=== PATIENT | male | born 1940 | race Caucasian/White ===

== ENCOUNTER 2020-10-14 12:42 | Emergency (ER) | payer OTHER, MEDICARE ==
[~2020-10-14] VITALS: Ht 193 cm; Wt 97.5 kg
[2020-10-14] MEDS ORDERED: MELO7.5 PO (13:54)
== END 2020-10-14 14:03 | disposition home or self-care (01) ==
LOC: ER 12:42
DX: M16.4 Bilateral post-traumatic osteoarthritis of hip (principal); I48.91 Unspecified atrial fibrillation; V89.2XXA Person injured in unspecified motor-vehicle accident, traffic, initial encounter; Y92.410 Unspecified street and highway as the place of occurrence of the external cause
CPT/HCPCS: 73522; 99283-25

== ENCOUNTER 2021-04-11 15:28 | Emergency (ER) | payer OTHER, MEDICARE ==
[~2021-04-11] VITALS: Ht 193 cm; Wt 101.6 kg
[~2021-04-11 15:28] MED LIST: MELO7.5 PO
== END 2021-04-11 19:18 | disposition home or self-care (01) ==
LOC: ER 15:28
DX: R09.89 Other specified symptoms and signs involving the circulatory and respiratory systems (principal); I48.91 Unspecified atrial fibrillation
CPT/HCPCS: 31575; 70360; 99284-25; J2001

== ENCOUNTER 2021-05-06 21:57 | Emergency (ER) | payer OTHER, MEDICARE ==
[~2021-05-06] VITALS: Ht 193 cm; Wt 102.1 kg
== END 2021-05-06 22:55 | disposition home or self-care (01) ==
LOC: ER 21:57
DX: K21.9 Gastro-esophageal reflux disease without esophagitis (principal); I48.91 Unspecified atrial fibrillation
CPT/HCPCS: 99283; A9270

== ENCOUNTER 2023-03-30 02:35 | Emergency (ER) | payer OTHER ==
[~2023-03-30] VITALS: Ht 193 cm; Wt 99.8 kg
[2023-03-30 02:53] LABS: BASOPHILS ABSOLUTE AUTO 0.04 K/mm3 (0.00-0.23); BASOPHILS PERCENT AUTO 0 % (0-2); EOSINOPHILS ABSOLUTE AUTO 0.38 K/mm3 (0.00-0.68); EOSINOPHILS PERCENT AUTO 4 % (0-6); Hemoglobin 13.6 g/dL (13.5-17.5); IMMATURE GRAN ABSOLUTE AUTO 0.04 K/mm3 (0.00-0.10); IMMATURE GRAN PERCENT AUTO 0 % (0-1); LYMPHOCYTES ABSOLUTE AUTO 1.62 K/mm3 (0.84-5.20); LYMPHOCYTES PERCENT AUTO 16 % (21-46); MONOCYTES ABSOLUTE AUTO 0.73 K/mm3 (0.16-1.47); MONOCYTES PERCENT AUTO 7 % (4-13); Mean Corpuscular HGB 31.2 pg (26.0-34.0); Mean Corpuscular HGB Conc 33.2 g/dL (31.5-36.5); Mean Corpuscular Volume 94 fL (80-100); NEUTROPHILS ABSOLUTE AUTO 7.53 K/mm3 (1.96-9.15); NEUTROPHILS PERCENT AUTO 73 % (41-73); Platelet Count 157 K/mm3 (150-400); RDW Coefficient Variation 13.2 % (11.7-14.2); RDW Standard Deviation 45.8 fL (35.1-46.3); Red Blood Cell Count 4.36 M/mm3 (4.30-5.90); White Blood Cell Count 10.34 K/mm3 (4.00-11.30)
[2023-03-30 03:11] LABS: Albumin, Blood 3.3 g/dL (3.4-5.0); Albumin/Globulin Ratio 0.9 (0.8-1.8); Bilirubin, Total 1.1 mg/dL (0.1-1.0); Bun/Creatinine Ratio 11.7 (12.0-20.0); Calcium, Blood 8.7 mg/dL (8.5-10.1); Creatinine, Blood 2.31 mg/dL (0.60-1.20); Globulin, Blood 3.5 g/dL (2.2-4.0); Potassium, Blood 4.1 mmol/L (3.5-5.5); Total Protein, Blood 6.8 g/dL (6.4-8.2)
[2023-03-30 04:03] LABS: Source, Urine Clean Catch
[2023-03-30 04:12] LABS: Bilirubin, Urine Neg (Neg); Blood, Urine 2+ (Neg); Glucose Qualitative, Urine Neg (Neg); Ketones, Urine Neg (Neg); Leukocyte Esterase, Urine Neg (Neg); Nitrite, Urine Neg (Neg); Protein, Urine 1+ (Neg); Specific Gravity, Urine 1.015 (1.003-1.022); Urobilinogen, Urine 2+ (Normal)
[2023-03-30 04:30] LABS: Appearance, Urine Clear (Clear); Bacteria Not Seen /hpf; Color, Urine Yellow (P-Yellow); Squamous Epithelial Cells Rare /hpf (Few); White Blood Cells, Urine Not Seen /hpf (0-5)
[2023-03-30 04:37] VITALS: BP 110/67
== END 2023-03-30 05:09 | disposition home or self-care (01) ==
LOC: ER 02:35
PROVIDERS: Emergency Medicine
DX: R10.30 Lower abdominal pain, unspecified (principal); R11.0 Nausea; R68.83 Chills (without fever); R09.82 Postnasal drip
CPT/HCPCS: 51798; 74018; 80053; 81001; 85025

== ENCOUNTER 2023-03-31 20:19 | Inpatient (IN) | payer OTHER ==
[~2023-03-31] VITALS: Ht 193 cm; Wt 99.6 kg
[2023-03-31 20:59] LABS: BASOPHILS ABSOLUTE AUTO 0.05 K/mm3 (0.00-0.23); BASOPHILS PERCENT AUTO 0 % (0-2); EOSINOPHILS ABSOLUTE AUTO 0.51 K/mm3 (0.00-0.68); EOSINOPHILS PERCENT AUTO 4 % (0-6); Hematocrit 39.9 % (37.0-53.0); Hemoglobin 13.7 g/dL (13.5-17.5); IMMATURE GRAN ABSOLUTE AUTO 0.05 K/mm3 (0.00-0.10); IMMATURE GRAN PERCENT AUTO 0 % (0-1); LYMPHOCYTES ABSOLUTE AUTO 1.13 K/mm3 (0.84-5.20); LYMPHOCYTES PERCENT AUTO 8 % (21-46); MONOCYTES PERCENT AUTO 11 % (4-13); Mean Corpuscular HGB 31.2 pg (26.0-34.0); Mean Corpuscular HGB Conc 34.3 g/dL (31.5-36.5); Mean Corpuscular Volume 91 fL (80-100); Mean Platelet Volume 10.3 fL (9.1-12.4); NEUTROPHILS ABSOLUTE AUTO 10.25 K/mm3 (1.96-9.15); NEUTROPHILS PERCENT AUTO 77 % (41-73); NRBC ABSOLUTE 0.02 K/mm3 (0.00-0.02); NRBC Auto 0.1 /100 WBC (0.0-0.2); Platelet Count 166 K/mm3 (150-400); RDW Coefficient Variation 13.6 % (11.7-14.2); RDW Standard Deviation 45.3 fL (35.1-46.3); Red Blood Cell Count 4.39 M/mm3 (4.30-5.90); White Blood Cell Count 13.39 K/mm3 (4.00-11.30)
[2023-03-31 21:18] LABS: Albumin, Blood 3.4 g/dL (3.4-5.0); Bilirubin, Total 4.3 mg/dL (0.1-1.0); Bun/Creatinine Ratio 13.5 (12.0-20.0); Calcium, Blood 8.4 mg/dL (8.5-10.1); Creatinine, Blood 2.6 mg/dL (0.60-1.20); Globulin, Blood 3.5 g/dL (2.2-4.0); Potassium, Blood 4.2 mmol/L (3.5-5.5); Total Protein, Blood 6.9 g/dL (6.4-8.2)
[2023-04-01 02:35] LABS: Source, Urine Clean Catch
[2023-04-01 02:38] LABS: Appearance, Urine Clear (Clear); Blood, Urine 2+ (Neg); Color, Urine Amber (P-Yellow); Glucose Qualitative, Urine Neg (Neg); Ketones, Urine Neg (Neg); Leukocyte Esterase, Urine Neg (Neg); Nitrite, Urine Neg (Neg); Protein, Urine 2+ (Neg); Specific Gravity, Urine 1.015 (1.003-1.022); Urobilinogen, Urine 2+ (Normal)
[2023-04-01 02:46] LABS: Bilirubin, Urine 1+ (Neg)
[2023-04-01 02:49] LABS: Bacteria Rare /hpf; Hyaline Casts 0-2 /lpf (0-2); Red Blood Cells, Urine 0-2 /hpf (0-2); Squamous Epithelial Cells Rare /hpf (Few); White Blood Cells, Urine 0-2 /hpf (0-5)
[2023-04-01 07:18] LABS: Hematocrit 41.9 % (37.0-53.0); Hemoglobin 14.1 g/dL (13.5-17.5); Mean Corpuscular HGB 30.9 pg (26.0-34.0); Mean Corpuscular HGB Conc 33.7 g/dL (31.5-36.5); Mean Corpuscular Volume 92 fL (80-100); Mean Platelet Volume 10.2 fL (9.1-12.4); Platelet Count 159 K/mm3 (150-400); RDW Coefficient Variation 13.6 % (11.7-14.2); Red Blood Cell Count 4.57 M/mm3 (4.30-5.90); White Blood Cell Count 14.08 K/mm3 (4.00-11.30)
[2023-04-01 07:45] LABS: Albumin, Blood 3.1 g/dL (3.4-5.0); Albumin/Globulin Ratio 0.9 (0.8-1.8); Bilirubin, Direct 2.6 mg/dL (0.0-0.3); Bilirubin, Total 3.6 mg/dL (0.1-1.0); Bun/Creatinine Ratio 12.4 (12.0-20.0); Calcium, Blood 8.6 mg/dL (8.5-10.1); Creatinine, Blood 2.42 mg/dL (0.60-1.20); Globulin, Blood 3.6 g/dL (2.2-4.0); Potassium, Blood 4.3 mmol/L (3.5-5.5); Total Protein, Blood 6.7 g/dL (6.4-8.2)
[2023-04-01] MEDS ORDERED: TAMSULOSIN HCL0.4 M1 PO (10:52)
[2023-04-01] MEDS ORDERED: FUROSEMIDE20 MG PO (10:52)
[2023-04-01] MEDS ORDERED: LORA10ER PO (10:53)
[2023-04-01] MEDS ORDERED: ATEN25 PO (10:54)
[2023-04-01] MEDS ORDERED: OMEP20ER PO (10:54)
[2023-04-01] MEDS ORDERED: POTA10T PO (10:55)
[2023-04-01] MEDS ORDERED: LOSARTAN POTASS25 MG PO (10:55)
[2023-04-01] MEDS ORDERED: SODIUM CHLORIDE (10:56)
[2023-04-01] MEDS ORDERED: ELIQUIS2.5 MG PO (11:22)
[2023-04-01 12:27] VITALS: BP 136/70
[2023-04-01 15:51] VITALS: BP 127/78
--- NOTE | 2023-04-01 17:24 | NUR ---
SHIFT SUMMARY PT A&O2-3/CONFUSED, NPO, TELE AFIB @ 90-100, AMB SBA, VOIDING/URINAL, SURGICAL CONSULT CALLED-DR CAMPOS AWARE. WILL REPORT TO NEXT RN.
[2023-04-01 19:18] VITALS: BP 125/67
--- NOTE | 2023-04-01 22:03 | NUR ---
ASSUMED CARE OF PT. PT LAYING ON RIGHT SIDE, APPEARS TO BE SLEEPING, RESP E/U, NO DISTRESS NOTED. BED ALARM ON FOR SAFETY.
[2023-04-02] VITALS (14 sets, daily range): BP systolic 98–142; BP diastolic 54–93
[2023-04-02 04:56] LABS: BASOPHILS ABSOLUTE AUTO 0.03 K/mm3 (0.00-0.23); BASOPHILS PERCENT AUTO 0 % (0-2); EOSINOPHILS ABSOLUTE AUTO 0.01 K/mm3 (0.00-0.68); EOSINOPHILS PERCENT AUTO 0 % (0-6); Hemoglobin 12.4 g/dL (13.5-17.5); IMMATURE GRAN ABSOLUTE AUTO 0.09 K/mm3 (0.00-0.10); IMMATURE GRAN PERCENT AUTO 1 % (0-1); LYMPHOCYTES ABSOLUTE AUTO 1.08 K/mm3 (0.84-5.20); LYMPHOCYTES PERCENT AUTO 7 % (21-46); MONOCYTES ABSOLUTE AUTO 1.79 K/mm3 (0.16-1.47); MONOCYTES PERCENT AUTO 12 % (4-13); Mean Corpuscular HGB 30.6 pg (26.0-34.0); Mean Corpuscular HGB Conc 33.5 g/dL (31.5-36.5); Mean Corpuscular Volume 91 fL (80-100); Mean Platelet Volume 10.8 fL (9.1-12.4); NEUTROPHILS ABSOLUTE AUTO 12.37 K/mm3 (1.96-9.15); NEUTROPHILS PERCENT AUTO 81 % (41-73); Platelet Count 136 K/mm3 (150-400); RDW Coefficient Variation 13.4 % (11.7-14.2); RDW Standard Deviation 45.1 fL (35.1-46.3); Red Blood Cell Count 4.05 M/mm3 (4.30-5.90); White Blood Cell Count 15.37 K/mm3 (4.00-11.30)
[2023-04-02 05:38] LABS: Albumin, Blood 2.5 g/dL (3.4-5.0); Albumin/Globulin Ratio 0.8 (0.8-1.8); Bilirubin, Total 3.4 mg/dL (0.1-1.0); Bun/Creatinine Ratio 12.4 (12.0-20.0); Calcium, Blood 8.1 mg/dL (8.5-10.1); Creatinine, Blood 2.42 mg/dL (0.60-1.20); Globulin, Blood 3.2 g/dL (2.2-4.0); Potassium, Blood 4.5 mmol/L (3.5-5.5); Total Protein, Blood 5.7 g/dL (6.4-8.2)
--- NOTE | 2023-04-02 05:41 | NUR ---
PT APPEARED TO SLEEP FOR MAJORITY OF NIGHT, VSS, HR AFIB 65 PER TELE MONITOR. PT DENIED ABD PAIN/N/V, HAS BEEN NPO POST MIDNIGHT. PT VOIDING DARK PEREZ URINE IN URINAL. IVF AND ABX CONT PER ORDERS. BED ALARM ON FOR SAFETY. PLAN FOR SURGERY TODAY.
--- NOTE | 2023-04-02 10:20 | NUR ---
PATIENT TO DAY SURGERY VIA [facility]
--- NOTE | 2023-04-02 11:09 | NUR ---
THE PATIENT WAS BROUGHT TO DAY SURGERY FOR HIS PROCEDURE.
--- NOTE | 2023-04-02 14:10 | NUR ---
RETURNED FROM PACU PATIENT BACK TO ROOM FROM PACU. VSS ON 4L O2 VIA NC. X4 LAP SITES TO ABDOMEN W/ STERI STRIPS, C/D/I. PATIENT DENIES PAIN. TOLERATIG WATER & JELLO CURRENTLY. DENIES N/V. CALL LIGHT IN REACH.
--- NOTE | 2023-04-02 18:26 | NUR ---
SHIFT SUMMARY POD 0 LAP UMANG. NO ACUTE CHANGES SINCE RETURN TO UNIT. X4 LAP SITES TO ABDOMEN, STERI STRIPS C/D/I. PATIENT TOLERATING REGULAR DIET, DENIES N/V. VOIDING W/O DIFFICULTY. CALL LIGHT IN REACH, WILL REPORT TO ONCOMING RN AT 1900.
[2023-04-03 00:29] VITALS: BP 103/71
--- NOTE | 2023-04-03 04:59 | NUR ---
SHIFT SUMMARY POD1 LAP UMANG, 4 ABD INCISIONS, STERI STRIPS C/D/I. MINESH UMBILICAL BRUISING. A&OX4, CACHIL DEHE. DENIES PAIN T/O SHIFT, N/T, N/V, AND SOB. URINE VERY DARK PEREZ IN COLOR, DENIES PAIN ON URINATION. NEW 20G IV TO L FA, SL. TELE IN PLACE, AFIB @80BPM. PLANS FOR DC TODAY TO HOME. VSS, CALL LIGHT W/IN REACH, WILL REPORT OFF TO DAYSHIFT RN.
[2023-04-03 05:01] VITALS: BP 108/67
[2023-04-03 05:05] LABS: BASOPHILS ABSOLUTE AUTO 0.01 K/mm3 (0.00-0.23); BASOPHILS PERCENT AUTO 0 % (0-2); EOSINOPHILS PERCENT AUTO 0 % (0-6); Hematocrit 36.7 % (37.0-53.0); Hemoglobin 12.3 g/dL (13.5-17.5); IMMATURE GRAN ABSOLUTE AUTO 0.06 K/mm3 (0.00-0.10); IMMATURE GRAN PERCENT AUTO 1 % (0-1); LYMPHOCYTES ABSOLUTE AUTO 0.74 K/mm3 (0.84-5.20); LYMPHOCYTES PERCENT AUTO 6 % (21-46); MONOCYTES ABSOLUTE AUTO 0.85 K/mm3 (0.16-1.47); MONOCYTES PERCENT AUTO 7 % (4-13); Mean Corpuscular HGB 30.7 pg (26.0-34.0); Mean Corpuscular HGB Conc 33.5 g/dL (31.5-36.5); Mean Corpuscular Volume 92 fL (80-100); Mean Platelet Volume 10.6 fL (9.1-12.4); NEUTROPHILS PERCENT AUTO 87 % (41-73); Platelet Count 137 K/mm3 (150-400); RDW Coefficient Variation 13.5 % (11.7-14.2); RDW Standard Deviation 45.6 fL (35.1-46.3); Red Blood Cell Count 4.01 M/mm3 (4.30-5.90); White Blood Cell Count 13.16 K/mm3 (4.00-11.30)
[2023-04-03 05:41] LABS: Albumin, Blood 2.5 g/dL (3.4-5.0); Albumin/Globulin Ratio 0.7 (0.8-1.8); Bilirubin, Total 2.1 mg/dL (0.1-1.0); Bun/Creatinine Ratio 15.3 (12.0-20.0); Calcium, Blood 8.5 mg/dL (8.5-10.1); Creatinine, Blood 2.22 mg/dL (0.60-1.20); Globulin, Blood 3.7 g/dL (2.2-4.0); Potassium, Blood 4.7 mmol/L (3.5-5.5); Total Protein, Blood 6.2 g/dL (6.4-8.2)
[2023-04-03 07:24] VITALS: BP 115/73
--- NOTE | 2023-04-03 09:55 | NUR ---
DISCHARGE PATIENT TOLERATING REGULAR DIET WELL, DENIES N/V. X4 LAP SITES TO ABDOMEN, UMBILICAL INCISION HAS LIGHT SS DRAINAGE, INTACT. PATIENT DENIES ABDOMINAL PAIN. VOIDING W/O DIFFICULTY. AMBULATING 1P ASSIST WITH GB. ATTEMPTED TO DISCUSS DISCHARGE INSTRUCTIONS WITH PATIENT, PATIENT INTERRUPTED THIS RN AND STATED "I CAN READ PAPERS, YOU DONT NEED TO TELL ME ANYTHING". THIS RN VERIFIED BY ASKING "YOU DONT WANT ME TO GO OVER ANY OF THE DISCHARGE PACKET WITH YOU?", PATIENT STATED "NO, JUST GIVE IT TO ME". DISCHARGE PACKET GIVEN TO PATIENT & ESCORTED OUT TO PATIENTS RIDE VIA W/C.
== END 2023-04-03 09:57 | disposition home or self-care (01) | DRG 418 ==
LOC: ER 20:19 → SURS 04-01 10:56
PROVIDERS: Student in an Organized Health Care Education/Training Program; Surgery; ADMIT Internal Medicine
PROC: 0FT44ZZ Resection of Gallbladder, Percutaneous Endoscopic Approach (ICD-10-PCS; principal; 2023-04-02 11:30)
DX: K80.00 Calculus of gallbladder with acute cholecystitis without obstruction (principal); I48.20 Chronic atrial fibrillation, unspecified; N18.4 Chronic kidney disease, stage 4 (severe); N17.9 Acute kidney failure, unspecified; K82.1 Hydrops of gallbladder; K82.A1 Gangrene of gallbladder in cholecystitis; R74.01 Elevation of levels of liver transaminase levels; E80.6 Other disorders of bilirubin metabolism; K21.9 Gastro-esophageal reflux disease without esophagitis; K22.70 Barrett's esophagus without dysplasia; Z79.01 Long term (current) use of anticoagulants; Z86.73 Personal history of transient ischemic attack (TIA), and cerebral infarction without residual deficits; Z79.899 Other long term (current) drug therapy
CPT/HCPCS: 36415; 71045; 74177; 74181; 76705; 80048; 80053; 80076; 81001; 82248; 83690; 85025; 85027; 88304; 93005; 93010; 94760; 96365-59; 96366; 96375; 99285-25; A9270; J1100; J2250; J2370; J2405; J2543; J2704; J3010; J7030; J7120; Q9967

== ENCOUNTER 2023-06-07 15:12 | Emergency (ER) | payer OTHER ==
[~2023-06-07] VITALS: Ht 193 cm; Wt 95.7 kg
[~2023-06-07 15:12] MED LIST changes: +ATEN25 PO; +BACITO TOP; +ELIQUIS2.5 MG PO; +FUROSEMIDE20 MG PO; +LORA10ER PO; +LOSARTAN POTASS25 MG PO; +OMEP20ER PO; +POTA10T PO; +SODIUM CHLORIDE; +TAMSULOSIN HCL0.4 M1 PO
[2023-06-07 15:26] VITALS: BP 97/67
== END 2023-06-07 16:46 | disposition home or self-care (01) ==
LOC: ER 15:12
DX: S90.32XA Contusion of left foot, initial encounter (principal); I48.91 Unspecified atrial fibrillation; Z79.01 Long term (current) use of anticoagulants; X58.XXXA Exposure to other specified factors, initial encounter
CPT/HCPCS: 73610

== ENCOUNTER 2023-11-18 08:38 | Day surgery (SDC) | payer OTHER ==
[~2023-11-18 08:38] MED LIST changes: +ATEN100 PO; -ATEN25 PO; +LOSA25 PO; -LOSARTAN POTASS25 MG PO; +TRAM50 PO
[2023-11-18 11:08] VITALS: BP 103/64
== END 2023-11-18 11:17 | disposition home or self-care (01) ==
LOC: ORSCSDS 08:38
PROVIDERS: Internal Medicine Gastroenterology
PROC: 0DB58ZX Excision of Esophagus, Via Natural or Artificial Opening Endoscopic, Diagnostic (ICD-10-PCS; principal; 2023-11-18 10:15)
DX: K22.70 Barrett's esophagus without dysplasia (principal); K21.9 Gastro-esophageal reflux disease without esophagitis; I48.20 Chronic atrial fibrillation, unspecified; Z79.01 Long term (current) use of anticoagulants; G47.33 Obstructive sleep apnea (adult) (pediatric); I12.9 Hypertensive chronic kidney disease with stage 1 through stage 4 chronic kidney disease, or unspecified chronic kidney disease; N18.32 Chronic kidney disease, stage 3b; Z79.899 Other long term (current) drug therapy
CPT/HCPCS: 88305; 88312; J2250; J2704; J7120

== ENCOUNTER 2024-11-23 09:13 | Day surgery (SDC) | payer OTHER ==
[~2024-11-23] VITALS: Ht 193 cm; Wt 101.9 kg
[~2024-11-23 09:13] MED LIST changes: +Lactated Ringer's 1,000 ML IV ONE
[2024-11-23] MEDS ORDERED: FURO20 (10:43)
[2024-11-23] MEDS ORDERED: OMEP20ER (10:43)
[2024-11-23] MEDS ORDERED: Lidocaine HCl 4% 5 ML SDA ONE (11:48)
[2024-11-23] MEDS ORDERED: Lactated Ringer's 1,000 ML IV ONE (11:59)
[2024-11-23] MEDS ORDERED: propofoL 50 ML IV ONE (12:22)
[2024-11-23 13:22] VITALS: BP 109/68
--- NOTE | 2024-11-23 13:35 | NUR ---
11/23/24 1335 KENNA MCKOY PT UP TO RESTROOM VOIDED URINE W/ RN SBA
== END 2024-11-23 13:30 | disposition home or self-care (01) ==
LOC: ORSCSDS 09:13
PROVIDERS: Internal Medicine Gastroenterology
PROC: 0DB68ZX Excision of Stomach, Via Natural or Artificial Opening Endoscopic, Diagnostic (ICD-10-PCS; principal; 2024-11-23 11:00)
PROC: 0DB58ZX Excision of Esophagus, Via Natural or Artificial Opening Endoscopic, Diagnostic (ICD-10-PCS; principal; 2024-11-23 11:00)
DX: K22.70 Barrett's esophagus without dysplasia (principal); K31.7 Polyp of stomach and duodenum; I48.91 Unspecified atrial fibrillation; G47.33 Obstructive sleep apnea (adult) (pediatric); I12.9 Hypertensive chronic kidney disease with stage 1 through stage 4 chronic kidney disease, or unspecified chronic kidney disease; N18.32 Chronic kidney disease, stage 3b; E78.5 Hyperlipidemia, unspecified; N40.0 Benign prostatic hyperplasia without lower urinary tract symptoms; Z79.01 Long term (current) use of anticoagulants; Z79.899 Other long term (current) drug therapy
CPT/HCPCS: 88305; J2003; J2704; J7120

== ENCOUNTER 2025-08-12 09:45 | Emergency (ER) | payer OTHER ==
[~2025-08-12] VITALS: Ht 193 cm; Wt 108.9 kg
[~2025-08-12 09:45] MED LIST changes: +FURO20; -Lactated Ringer's 1,000 ML IV ONE; +OMEP20ER
[2025-08-12 10:22] LABS: BASOPHILS ABSOLUTE AUTO 0.06 K/mm3 (0.00-0.23); BASOPHILS PERCENT AUTO 1 % (0-2); EOSINOPHILS ABSOLUTE AUTO 0.10 K/mm3 (0.00-0.68); EOSINOPHILS PERCENT AUTO 1 % (0-6); Hematocrit 42.2 % (37.0-53.0); Hemoglobin 14.2 g/dL (13.5-17.5); IMMATURE GRAN ABSOLUTE AUTO 0.03 K/mm3 (0.00-0.10); IMMATURE GRAN PERCENT AUTO 0 % (0-1); LYMPHOCYTES ABSOLUTE AUTO 1.35 K/mm3 (0.84-5.20); LYMPHOCYTES PERCENT AUTO 10 % (21-46); MONOCYTES ABSOLUTE AUTO 1.49 K/mm3 (0.16-1.47); MONOCYTES PERCENT AUTO 11 % (4-13); Mean Corpuscular HGB Conc 33.6 g/dL (31.5-36.5); Mean Corpuscular Volume 93 fL (80-100); NEUTROPHILS ABSOLUTE AUTO 10.04 K/mm3 (1.96-9.15); NEUTROPHILS PERCENT AUTO 77 % (41-73); NRBC ABSOLUTE 0.00 K/mm3 (0.00-0.02); NRBC Auto 0.0 /100 WBC (0.0-0.2); Platelet Count 188 K/mm3 (150-400); RDW Coefficient Variation 13.6 % (11.7-14.2); RDW Standard Deviation 46.2 fL (35.1-46.3)
[2025-08-12 10:44] LABS: Alanine Aminotransfer (ALT/SGP 17.0 U/L (12-78); Albumin, Blood 3.5 g/dL (3.4-5.0); Albumin/Globulin Ratio 1.0 (0.8-1.8); Anion Gap 8.0 mmol/L (3-11); Aspartate Aminotrans (AST/SGOT 18.0 U/L (12-37); Bilirubin, Total 1.4 mg/dL (0.1-1.0); Blood Urea Nitrogen 28.0 mg/dL (8-24); CO2, Blood 26.0 mmol/L (21-32); Calcium, Blood 8.9 mg/dL (8.5-10.1); Chloride, Blood 109.0 mmol/L (98-108); Creatinine, Blood 2.71 mg/dL (0.60-1.20); Globulin, Blood 3.5 g/dL (2.2-4.0); Glucose, Blood 150.0 mg/dL (70-99); Potassium, Blood 4.7 mmol/L (3.5-5.5); Sodium, Blood 138.0 mmol/L (136-145); Total Protein, Blood 7.0 g/dL (6.4-8.2)
[2025-08-12 12:45] VITALS: BP 102/69
== END 2025-08-12 13:07 | disposition home or self-care (01) ==
LOC: ER 09:45
PROVIDERS: Student in an Organized Health Care Education/Training Program
DX: R07.9 Chest pain, unspecified (principal); N18.9 Chronic kidney disease, unspecified; D72.829 Elevated white blood cell count, unspecified; E80.6 Other disorders of bilirubin metabolism; Z79.899 Other long term (current) drug therapy; Z88.8 Allergy status to other drugs, medicaments and biological substances
CPT/HCPCS: 71046; 80053; 84484; 85025; 96360; 99285-25; J7120